=== PATIENT | female | born 1995 | race Caucasian/White ===

== ENCOUNTER 2021-04-18 18:38 | Emergency (ER) | payer OTHER, MEDICAID ==
[~2021-04-18] VITALS: Ht 165.1 cm; Wt 72.6 kg
[~2021-04-18 18:38] MED LIST: IBUPROFEN 800800 M1 PO; PRENATAL; VICODIN 5-5001 EACH PO
[2021-04-18] MEDS ORDERED: CELEXA 10 MG TA10 M1 PO (18:45)
[2021-04-18 20:36] VITALS: BP 147/96
== END 2021-04-18 20:37 | disposition home or self-care (01) ==
LOC: M.ERS 18:38
DX: Z53.21 Procedure and treatment not carried out due to patient leaving prior to being seen by health care provider (principal)